=== PATIENT | female | born 1995 | race Caucasian/White ===

== ENCOUNTER 2018-09-29 10:47 | Emergency (ER) | payer OTHER, SELFPAY ==
[2018-09-29 10:50] VITALS: BP 125/55; PULSE 93; RESP 14; TEMP 36.1; O2SAT 100; BMI 26.9
[2018-09-29] MEDS: ALBUTEROL 2.5 MG/3 ML NEB (ADULT) INH (11:03)
[2018-09-29 11:08] VITALS: PULSE 81; O2SAT 99
--- NOTE | 2018-09-29 11:35 | ED_ITS ---
HPI - URI/Sore Throat General Chief Complaint: Upper Respiratory Symptoms Stated Complaint: Cough Time Seen by Provider: 09/29/18 10:52 Source: patient Mode of arrival: ambulatory Limitations: no limitations History of Present Illness HPI Narrative: Patient is a 23-year-old female currently 7 weeks presenting with a dry nonproductive cough. She says been ongoing every morning for the last 3 days. She denies any fever she feels like she has had some wheezing. She denies any chest tightness or shortness of breath no pain. She denies any other symptoms or allergies. Complaint: cough Onset (ago): day(s) (3) Related Data Allergies Allergy/AdvReac Type Severity Reaction Status Date / Time No Known Drug Allergies Allergy Verified 09/29/18 10:55 Review of Systems Review of Systems ROS Unobtainable: All systems reviewed & are unremarkable except as noted in HPI and below Constitutional Denies chills, Denies fever(s), Denies lethargy and Denies weakness Cardiovascular Denies chest pain, Denies irregular heart rhythm, Denies lightheadedness, Denies palpitations, Denies dyspnea and Denies orthopnea Respiratory Denies chest congestion, Reports cough, Denies dyspnea and Denies wheezing Gastrointestinal Gastrointestinal: Denies abdominal pain, Denies change in bowel habits, Denies diarrhea, Denies nausea and Denies vomiting Genitourinary Denies hematuria, Denies flank pain, Denies urinary incontinence and Denies urinary urgency Musculoskeletal Denies back pain, Denies muscle weakness, Denies numbness and Denies tingling Integumentary/Breasts Denies pruritus, Denies erythema, Denies rash and Denies wounds Neurologic Denies numbness, Denies tingling and Denies weakness Endocrine Denies palpitations Allergic/Immunologic Denies wheezing [facility] Medical History Patient denies significant medical history (Acute) Social History Smoking Status: Unknown if ever smoked Social History Smoking Status: Unknown if ever smoked Exam Initial Vital Signs Initial Vital Signs: Vital Signs Temperature 97.0 F L 09/29/18 10:50 Pulse Rate 93 H 09/29/18 10:50 Respiratory Rate 14 09/29/18 10:50 Blood Pressure 125/55 L 09/29/18 10:50 Pulse Oximetry 100 09/29/18 10:50 GENERAL: Well-appearing, well-nourished and in no acute distress. HEENT: Head atraumatic,EOMI, pupils reactive, face symmetric CARDIOVASCULAR: Regular rate and rhythm without murmurs, rubs or gallops. RESPIRATORY: Breath sounds equal bilaterally, no wheezes rales or rhonchi. Speaks in full sentences no tachypnea ABDOMEN: Soft, nontender. Normoactive bowel sounds all 4 quadrants. No guarding or rebound. EXTREMITIES: Normal range of motion, no clubbing or edema. Neurovascularly intact NEUROLOGICAL: Alert and oriented x4.Normal gait and speech. SKIN: Warm, dry, no laceration, no petechiae, no rashes or lesions. Course Orders Ordered: Discontinued Medications Albuterol (Ventolin) 2.5 mg INH NOW ONE Stop: 09/29/18 10:58 Last Admin: 09/29/18 11:03 Dose: 2.5 mg Vital Signs - 8 hr 09/29/18 10:50 09/29/18 11:08 09/29/18 11:44 Temperature 97.0 F L Pulse Rate 93 H 81 89 Respiratory Rate 14 17 Blood Pressure 125/55 L Blood Pressure [Right Arm] 124/54 L Pulse Oximetry 100 99 97 09/29/18 11:48 Temperature Pulse Rate 91 H Respiratory Rate 20 Blood Pressure 124/54 L Blood Pressure [Right Arm] Pulse Oximetry 98 MDM - URI/Sore Throat MDM Narrative Medical decision making narrative: Patient had a trial of albuterol she says it did not really help her at all. Her lungs sound clear wheezing no productive cough or fever. At this time I do not think she needs any sort of imaging. We talked about how might be allergies versus acid reflux recommended follow-up. Discharge Plan Departure Patient Disposition: Home Clinical Impression: Bronchitis Discharge Date/Time: 09/29/18 11:49 Interventions: ED Discharge Assessment Last Done: 09/29/18 11:48 Instructions: DI for Acute Bronchitis Activity Restrictions/Additional Instructions: *You have been diagnosed with possible bronchitis *What to do: At this time you actually do not have any infectious signs. No indication for antibiotics for x-ray. Possible acid reflux or allergies. *Continue to take medications as directed Tiums as directed if needed for acid reflux *Follow up with your primary care provider in 2-3 days *Return to ER if you should have fever, worsening cough, worsening shortness of or any new, worsening or concerning symptoms Referrals: [facility] [employer]ie [employer] [Provider Group]
[2018-09-29 11:44] VITALS: BP 124/54; PULSE 89; RESP 17; O2SAT 97
[2018-09-29 11:48] VITALS: BP 124/54; PULSE 91; RESP 20; O2SAT 98
== END 2018-09-29 11:49 | disposition home or self-care (01) ==
PROVIDERS: Emergency Provider Emergency Medicine
DX: J40 Bronchitis, not specified as acute or chronic (principal)
CPT/HCPCS: 94640; 99282; 99283; J7613